=== PATIENT | male | born 1935 | race Caucasian/White ===

== ENCOUNTER → 2020-06-13 18:00 | Outpatient (CLI) | payer MEDICARE, SELFPAY ==
[2020-06-13 18:59] LABS: Basophils % 0.9 % (0.1-2.0); Eosinophils % 1.4 % (0.1-12.0); Hematocrit 40.3 % (42.0-52.0); Hemoglobin 13.6 g/dL (14.1-18.0); Lymphocytes # 0.8 K/mm3 (0.7-4.5); Lymphocytes % 26.7 % (10-50); Mean Corpuscular HGB Conc 33.8 g/dL (31.8-35.4); Mean Corpuscular Hemoglobin 34.7 pg (27.0-31.2); Mean Corpuscular Volume 102.8 fl (80-94); Mean Platelet Volume 8.8 fl (7.4-10.4); Monocytes # 0.3 K/mm3 (0.1-1.0); Monocytes % 8.7 % (1.7-9.3); Neutrophils # 1.8 K/mm3 (1.8-7.8); Neutrophils % 62.3 % (37.0-80.0); Platelet Count 172 K/mm3 (142-424); Red Blood Count 3.92 M/mm3 (4.60-6.20); Red Cell Distribution Width 15.1 % (11.5-17.5); White Blood Count 2.9 K/mm3 (4.8-10.8)
[2020-06-13 19:04] LABS: Chloride 104 mmol/L (98-107); Potassium 3.7 mmoL/L (3.5-5.1); Sodium 141 mmol/L (136-145)
[2020-06-13 19:06] LABS: Alanine Aminotransferase 14 U/L (12-78); Alkaline Phosphatase 54 U/L (38-126); Aspartate Amino Transferase 26 U/L (17-59); Bilirubin,Total 1.2 mg/dl (0.2-1.3); Blood Urea Nitrogen 18 mg/dl (9-20); Estimated Glomerular Filt Rate 93 ml/min (>60); GFR (African American) 112 ML/MIN (>60)
[2020-06-13 19:07] LABS: Albumin Level 3.8 g/dl (3.5-5.0); Albumin/Globulin Ratio 1.7 (1.1-1.8); Anion Gap 8.7 mEq/L (5-15); Carbon Dioxide 32 mmol/L (22.0-30.0); Globulin 2.3 g/dL (1.3-3.2); Glucose 123 mg/dl (74-100); Total Protein,Serum 6.1 g/dl (6.3-8.2)
[2020-06-13 19:38] LABS: Thyroid Stimulating Hormone 1.32 uIU/mL (0.465-4.68)
== END ==
PROVIDERS: Visit Provider Family Medicine
DX: J45.909 Unspecified asthma, uncomplicated (principal); R41.3 Other amnesia; Z00.00 Encounter for general adult medical examination without abnormal findings
CPT/HCPCS: 80053; 84443; 85025

== ENCOUNTER → 2020-06-22 10:09 | Outpatient (CLI) | payer MEDICARE, SELFPAY ==
--- NOTE | 2020-06-22 10:16 | CT_ITS ---
PROCEDURE: CT HEAD/BRAIN WO/W CON CLINICAL INDICATION: memory loss, hx of brain trauma COMPARISON: No exams were available for comparison TECHNIQUE: IV Contrast: 100ML OPITRAY 320 Axial images obtained. All CT scans at the facility use one or more dose reduction, viz: automated exposure control, ma/kV adjustment per patient size (including targeted exams where dose is matched to indication, i.e. head), or iterative reconstruction technique. FINDINGS: No midline shift, mass effect, intracranial hemorrhage, hydrocephalus, or extra-axial fluid collection is evident. There is generalized atrophy with hypoattenuation of the periventricular white matter consistent with microangiopathic changes. The calvarium has an unremarkable appearance. No enhancing lesions. IMPRESSION: No acute Finding(s). Dictated by: Iam Cooper MD 06/22/2020 17:09 Iam Cooper MD in [place] 06/22/2020 17:09
== END ==
PROVIDERS: PCP Family Medicine; Visit Provider Family Medicine
DX: R41.3 Other amnesia (principal)
CPT/HCPCS: 70470; Q9967

== ENCOUNTER → 2020-08-17 13:50 | Outpatient (CLI) | payer MEDICARE, SELFPAY ==
[2020-08-17 14:30] LABS: Basophils % 0.7 % (0.1-2.0); Hemoglobin 14.6 g/dL (14.1-18.0); Lymphocytes # 1.1 K/mm3 (0.7-4.5); Lymphocytes % 27.6 % (10-50); Mean Corpuscular HGB Conc 32.5 g/dL (31.8-35.4); Mean Corpuscular Hemoglobin 34.4 pg (27.0-31.2); Mean Corpuscular Volume 105.8 fl (80-94); Mean Platelet Volume 7.4 fl (7.4-10.4); Monocytes # 0.4 K/mm3 (0.1-1.0); Monocytes % 9.6 % (1.7-9.3); Neutrophils # 2.4 K/mm3 (1.8-7.8); Neutrophils % 61.2 % (37.0-80.0); Platelet Count 198 K/mm3 (142-424); Red Blood Count 4.26 M/mm3 (4.60-6.20); Red Cell Distribution Width 15.3 % (11.5-17.5); White Blood Count 3.9 K/mm3 (4.8-10.8)
[2020-08-17 15:03] LABS: Chloride 103 mmol/L (98-107); Sodium 138 mmol/L (136-145)
[2020-08-17 15:04] LABS: Potassium 4.6 mmoL/L (3.5-5.1)
[2020-08-17 15:06] LABS: Blood Urea Nitrogen 16 mg/dl (9-20); Estimated Glomerular Filt Rate 93 ml/min (>60); GFR (African American) 112 ML/MIN (>60)
[2020-08-17 15:07] LABS: Anion Gap 9.6 mEq/L (5-15); Calcium 9.3 mg/dl (8.4-10.2); Carbon Dioxide 30 mmol/L (22.0-30.0); Glucose 86 mg/dl (74-100)
[2020-08-17 15:08] LABS: Coronavirus 19 IgG Antibody Negative (Negative); Coronavirus 19 IgM Antibody Negative (Negative)
== END ==
PROVIDERS: Visit Provider Surgery
DX: R22.31 Localized swelling, mass and lump, right upper limb (principal); Z01.818 Encounter for other preprocedural examination; Z03.818 Encounter for observation for suspected exposure to other biological agents ruled out
CPT/HCPCS: 36415; 80048; 85025; 86328

== ENCOUNTER 2020-08-19 10:33 | Day surgery (SDC) | payer MEDICARE, SELFPAY ==
[2020-08-18 12:03] VITALS: BMI 23.0
[2020-08-19] VITALS (13 sets, daily range): BP systolic 122–143; BP diastolic 74–93; PULSE 71–91; RESP 12–18; TEMP 36.1–43; O2SAT 93–100
--- NOTE | 2020-08-19 10:53 | ECG_ITS ---
APPROVED REPORT Exam: Resting ECG HR:67 bpm ECG Measurements Heart Rate 67 AXES UT 224 P 84 QRSd 80 QRS 86 QT 394 T 77 QTc 416 Conclusion Sinus rhythm with 1st degree AV block Otherwise normal ECG Electronically signed by : Hardik Oliveros, 08/20/2020 10:33:49
--- NOTE | 2020-08-19 13:26 | HMH.ANESCL ---
[facility] Anesthesia Checklist - Patient Identification Patient Identification: Arm Band, Verbal (Name & ) - Structural Data Admitted From: Home Planned Operative Procedure/s: ex. fa mass Consent for Planned Operative Procedure(s) Verified: Yes Verified Documents: History and Physical - NPO Status Verified Time NPO: 00:00 - Additional verifications Patient : No Anesthesia Reactions: No Hx Blood Transfusions: No Blood Transfusion Reaction: No Cephalosporin Allergy: No Previous Colonoscopy: No - Cardiovascular Assessment Heart Sounds: S1 & S2 Pulse Strength: Baseline Pulse Rhythm: Regular Peripheral Edema: No - Airway Assessment C-Spine Mobility Assessed: Yes TMJ Mobility Assessed: Yes Dentition: Good Dentition - Neurological Assessment Level of Consciousness: Awake, Alert, Appropriate Hx Seizures: No Numbness or tingling in extremities: No - Anesthesia Plan Anesthesia Risk discussed: Yes Anesthesia Plan: Verified ASA Class: II Anesthesia Type: General [facility] History I have reviewed the patient's past medical history: Yes Medical History: Reports:: Asthma, Cancer (colon) Denies:: Diabetes Mellitus Type 1, Diabetes Mellitus Type 2, MRSA, Seizures *Have you ever received a pneumonia vaccine?: Yes *Have you received a flu vaccine this season?: Yes Other Medical History: Reports: Arthritis. Denies: Blood Transfusion Reaction Anesthesia experience/problems:: none Laterality Cases: Left: Arthroscopy Hip, Bilateral: Arthroscopy Knee Other Surgeries: Yes: Appendectomy, Colonoscopy Amputation: No - *Social History Last grade of school completed: Some college Smoking Status: Former smoker Alcohol Intake: never Alcohol Intake Frequency:: 3 or more drinks per day Substance Use Type: denies use *Occupational Status:: disabled Housing: house *Travel in the last 8 weeks: None Family Hx:: Other
--- NOTE | 2020-08-19 13:38 | P.OP_ITS ---
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 General anesthesia with laryngeal mask airway was achieved. The right upper extremity was prepped and draped in a sterile fashion. After infiltration local anesthetic an elliptical incision was made around the lesion with a 1 mm margin. The lesion was sharply excised and passed off for pathologic evaluation after being marked for margin with Vicryl suture. Reviewed the superior margin was marked with a short Vicryl suture and the thenar margin was marked with a long suture. Electrocautery was utilized to achieve hemostasis. Skin was then reapproximated with interrupted 4-0 nylon. Dressings were applied and the patient was transferred to recovery in stable condition after removal of his laryngeal mask airway. Condition: stable Disposition: PACU Specimens:: Right upper extremity skin lesion Complications:: No immediate
--- NOTE | 2020-08-19 13:44 | P.PN_ITS ---
[facility] Anesthesia Record Part I Intake, IV Amount: 400 Estimated blood loss (mL): 5 Urine output (mL): 0 Blood Products used (#): none Blood Pressure: 126/74 SaO2: 93 Pulse Rate: 84 Respiratory Rate: 18 Temperature: 97.6 F Patient is:: Drowsy, Stable Stable to PACU at:: 13:43
--- NOTE | 2020-08-19 14:52 | SUR.PHASEII ---
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 Dr casey aware.
--- NOTE | 2020-08-19 15:39 | P.PN_ITS ---
[facility] Anesthesia Record Part II Discharge Time: 14:13 Destination: Surgical Day Care (OP Surgery) PACU nurse assessment reviewed?: Yes Patient Condition:: Good Anesthesia Complications:: None Swallowing reflex intact?: Yes Cyanosis?: No Blood Pressure: 138/93 Pulse Rate: 80 Temperature: 97.0 F Mental Status: Alert & Oriented Pain level:: 0 Nausea and/or vomitting:: None Intake, IV Amount: 35
--- NOTE | 2020-08-19 16:42 | SUR.PHASEI ---
1343-pt to pacu via stretcher. Report received from Shazia BAIG and Serjio WU. Pt is sleeping comfortably. Arouses when name is called. 1353-Pt is awake but confused. C/o urge to void and sits up in bed. Urinal given to patient. Able to void 100 ml clear yellow urine without difficulty. Underwear soiled. Dry linens placed on bed. Underwear placed in biohazard bag and given to pt. 1403-Pt up on the side of the bed with assistance. C/o urge to void. Able to void w/o difficulty. Pt more awake and not confused at this time. 200 ml clear, yellow urine noted.
== END 2020-08-19 15:38 | disposition home or self-care (01) ==
LOC: OR 10:34
PROVIDERS: PCP Family Medicine; Visit Provider Surgery
PROC: (CPT 11603; principal; 2020-08-19 12:15)
DX: C44.622 Squamous cell carcinoma of skin of right upper limb, including shoulder (principal); J45.909 Unspecified asthma, uncomplicated; Z85.038 Personal history of other malignant neoplasm of large intestine; M19.90 Unspecified osteoarthritis, unspecified site
CPT/HCPCS: 11603; 88305; 93005; 96374

== ENCOUNTER → 2021-05-10 08:49 | Outpatient (CLI) | payer MEDICARE, SELFPAY ==
--- NOTE | 2021-05-10 08:58 | US_ITS ---
PROCEDURE: US GALLBLADDER CLINICAL INDICATION: gallstones COMPARISON: No exams were available for comparison FINDINGS: Pancreas: Pancreas is not well delineated due to overlying bowel gas. CT or MRI without and with contrast with pancreatic protocol may provide further evaluation if clinically desired. Liver: Unremarkable. There is appropriate direction of blood flow within a non dilated portal vein. Right kidney: Small right renal cyst at 1.6 cm. No hydronephrosis. Gallbladder: Wall echo shadow sign consistent with gallbladder filled with stones. Common bile duct is normal in caliber at 4 mm. Gallbladder wall is slightly thickened at 5 mm. No pericholecystic fluid evident. IMPRESSION: Wall echo shadow sign consistent with stone filled gallbladder with mild gallbladder wall thickening. No biliary dilatation or pericholecystic fluid. Dictated by: Iam Cooper MD 05/10/2021 09:51 Iam Cooper MD in [facility] 05/10/2021 09:51
== END ==
LOC: RAD 08:54
PROVIDERS: PCP Family Medicine; Visit Provider Family Medicine
DX: R10.11 Right upper quadrant pain (principal)
CPT/HCPCS: 76705

== ENCOUNTER → 2021-05-16 14:19 | Outpatient (POV) | payer MEDICARE, SELFPAY | PROVIDERS: Visit Provider Dermatology | DX: Z00.00 Encounter for general adult medical examination without abnormal findings (principal) ==

== ENCOUNTER → 2021-05-31 09:34 | Outpatient (CLI) | payer MEDICARE, SELFPAY ==
--- NOTE | 2021-05-31 10:04 | ECG_ITS ---
APPROVED REPORT Exam: Resting ECG HR:80 bpm ECG Measurements Heart Rate 80 AXES MN 192 P 127 QRSd 80 QRS 93 QT 362 T 76 QTc 417 Conclusion l Unusual P axis, possible ectopic atrial rhythm Rightward axis Abnormal ECG Electronically signed by : Hardik Oliveros MD 05/31/2021 17:47:12
[2021-05-31 10:12] LABS: Basophils % 0.4 % (0.1-2.0); Eosinophils % 0.1 % (0.1-12.0); Hematocrit 42.9 % (42.0-52.0); Hemoglobin 14.2 g/dL (14.1-18.0); Lymphocytes # 0.6 K/mm3 (0.7-4.5); Lymphocytes % 15.3 % (10-50); Mean Corpuscular Hemoglobin 33.8 pg (27.0-31.2); Mean Corpuscular Volume 102.4 fl (80-94); Monocytes # 0.1 K/mm3 (0.1-1.0); Monocytes % 2.6 % (1.7-9.3); Neutrophils # 3.2 K/mm3 (1.8-7.8); Neutrophils % 81.5 % (37.0-80.0); Platelet Count 228 K/mm3 (142-424); Red Blood Count 4.19 M/mm3 (4.60-6.20); Red Cell Distribution Width 14.8 % (11.5-17.5)
[2021-05-31 10:57] LABS: Chloride 105 mmol/L (98-107); Potassium 4.3 mmoL/L (3.5-5.1); Sodium 139 mmol/L (136-145)
[2021-05-31 11:00] LABS: Alanine Aminotransferase 15 U/L (12-78); Albumin Level 3.7 g/dl (3.5-5.0); Albumin/Globulin Ratio 1.5 (1.1-1.8); Alkaline Phosphatase 75 U/L (38-126); Anion Gap 10.3 mEq/L (5-15); Aspartate Amino Transferase 23 U/L (17-59); Bilirubin,Total 1.1 mg/dl (0.2-1.3); Blood Urea Nitrogen 16 mg/dl (9-20); Carbon Dioxide 28 mmol/L (22.0-30.0); Estimated Glomerular Filt Rate 129 ml/min (>60); GFR (African American) 156 ML/MIN (>60); Globulin 2.4 g/dL (1.3-3.2); Total Protein,Serum 6.1 g/dl (6.3-8.2)
[2021-05-31 11:01] LABS: Calcium 8.8 mg/dl (8.4-10.2); Glucose 149 mg/dl (74-100)
== END ==
PROVIDERS: Visit Provider Surgery
DX: K80.20 Calculus of gallbladder without cholecystitis without obstruction (principal); Z85.038 Personal history of other malignant neoplasm of large intestine; Z01.812 Encounter for preprocedural laboratory examination; Z11.52 Encounter for screening for COVID-19
CPT/HCPCS: 36415; 80053; 85025; 93005; C9803; U0003; U0005

== ENCOUNTER 2021-06-02 12:58 | Observation (INO) | payer MEDICARE, SELFPAY ==
[2021-05-31 12:35] VITALS: BMI 22.4
[2021-06-02] VITALS (21 sets, daily range): BP systolic 122–158; BP diastolic 50–94; PULSE 62–100; RESP 15–20; TEMP 36.5–36.9; O2SAT 90–100
--- NOTE | 2021-06-02 08:39 | P.PN_ITS ---
[facility] Anesthesia Checklist - Patient Identification Patient Identification: Arm Band, Verbal (Name & ) - Structural Data Admitted From: Home Planned Operative Procedure/s: Laparascopic Cholecystectomy Consent for Planned Operative Procedure(s) Verified: Yes Verified Documents: Surgical Consent - NPO Status Verified Time NPO: 00:00 - Additional verifications Anesthesia Reactions: No Hx Blood Transfusions: No Blood Transfusion Reaction: No - Cardiovascular Assessment Heart Sounds: S1 & S2 Pulse Rhythm: Regular - Airway Assessment C-Spine Mobility Assessed: Yes TMJ Mobility Assessed: Yes - Neurological Assessment Level of Consciousness: Awake, Alert, Appropriate - Anesthesia Plan Anesthesia Risk discussed: Yes ASA Class: II Anesthesia Type: General [facility] History Medical History: Reports:: Asthma, Cancer (colon) Denies:: Diabetes Mellitus Type 1, Diabetes Mellitus Type 2, Internal Pacemaker, MRSA, Seizures *Have you ever received a pneumonia vaccine?: No *Have you received a flu vaccine this season?: No Other Medical History: Reports: Arthritis. Denies: Blood Transfusion Reaction Anesthesia experience/problems:: no issues Laterality Cases: Left: Arthroscopy Hip, Bilateral: Arthroscopy Knee Other Surgeries: Yes: Appendectomy, Colonoscopy, Other. No: Pacemaker Amputation: No - *Social History Last grade of school completed: High school graduate Smoking Status: Former smoker Alcohol Intake: former Alcohol Intake Frequency:: 3 or more drinks per day Substance Use Type: denies use *Occupational Status:: retired Housing: house Household Members: spouse *Travel in the last 8 weeks: None Family Hx:: No significant family history
--- NOTE | 2021-06-02 11:35 | SUR.OPER ---
1102-family updated at this time 1135-family updated at this time
--- NOTE | 2021-06-02 11:40 | SUR.OPER ---
1136-contacted greenhouse or nursery transplanter and care management at this time to notify that patient would be admitted as inpatient for further monitoring as ordered per Dr. Covington
--- NOTE | 2021-06-02 12:03 | HMH.GSHP ---
HPI HPI: This is an 85-year-old gentleman with documented changes consistent with calculus cholecystitis. He underwent laparoscopic cholecystectomy where fairly severe calculus cholecystitis was confirmed. In addition he had profound/stents adhesions between the small bowel/colon and anterior abdominal wall. Secondary to the above findings his laparoscopic cholecystectomy was completed with the addition of a mini laparotomy for better evaluation is a focal area of questionable small bowel injury. No obvious injury was noted. Postoperatively, he was admitted for pain management, antibiotics, and ongoing observation. [facility] History Medical History: Reports:: Asthma, Cancer (colon) Denies:: Diabetes Mellitus Type 1, Diabetes Mellitus Type 2, Internal Pacemaker, MRSA, Seizures *Have you ever received a pneumonia vaccine?: No *Have you received a flu vaccine this season?: No Other Medical History: Reports: Arthritis. Denies: Blood Transfusion Reaction Anesthesia experience/problems:: no issues Laterality Cases: Left: Arthroscopy Hip, Bilateral: Arthroscopy Knee Other Surgeries: Yes: Appendectomy, Colonoscopy, Other. No: Pacemaker Amputation: No - *Social History Last grade of school completed: High school graduate Smoking Status: Former smoker Alcohol Intake: former Alcohol Intake Frequency:: 3 or more drinks per day Substance Use Type: denies use *Occupational Status:: retired Housing: house Household Members: spouse *Travel in the last 8 weeks: None Family Hx:: No significant family history Review of Systems - Constitutional Denies chills - Eyes Denies change in vision - ENT Denies difficulty swallowing - *Cardiovascular Denies chest pain - *Respiratory Denies cough - *Gastrointestinal Reports abdominal pain - *Genitourinary Denies blood in urine - *Musculoskeletal Denies deformity - Integumentary/Breasts Denies wounds - *Neurologic Denies abnormal speech - Psychiatric Denies anxiety - Endocrine Denies flushing - Hematologic/Lymphatic Denies easy bleeding - Allergic/Immunologic Reports GI upset with certain foods Meds Home Medications Medication Instructions Recorded Confirmed Type Hydrocod/Acet 5/325 mg [Benjamin 1 - 2 tab PO Q6HP PRN #17 tab 06/02/21 Rx 5/325mg tablet] Allergies Allergy/AdvReac Type Severity Reaction Status Date / Time No Known Allergies Allergy Verified 05/10/21 13:10 Exam Vital signs and Labs for Last 24 Hours: Temp Pulse Resp BP Pulse Ox 98.4 F 80 20 129/70 98 06/02/21 07:42 06/02/21 07:42 06/02/21 07:42 06/02/21 07:42 06/02/21 07:42 I & O for Last 24 hours: Intake & Output 05/31/21 06/01/21 06/02/21 06/03/21 11:59 11:59 11:59 11:59 Weight 165 lb - Constitutional no acute distress - *Routine HEENT Exam Head: Present: normocephalic Eye: Present: EOMI ENT: Present: mucous membranes moist - *Routine Neck Exam Present: full ROM - Routine Chest/Breast/Axilla Exam Chest wall: Absent: tenderness - *Routine Respiratory Exam Absent: respiratory distress - *Routine Cardiovascular Exam Present: RRR - *Routine Abdominal Exam Present: soft - *Routine Rectal Exam Rectal:: deferred - *Routine Genitalia Exam Genitalia:: deferred - *Routine Extremities Exam Absent: cyanosis, clubbing, edema - Routine Back/Spine/Pelvis Exam Back/Spine: Present: full ROM - *Routine Skin Exam Absent: erythema - *Routine Neurological Exam Present: alert - Routine Psychiatric Exam Present: normal affect Assessment and Plan (1) Acute cholecystitis without calculus Status: Acute Category: Medical Code(s): K81.0 - Acute cholecystitis (2) Abdominal adhesions Status: Acute Category: Medical Code(s): K66.0 - Peritoneal adhesions (postprocedural) (postinfection) - Assessment and plan all Dx Assessment and Plan for all problems:: Postoperative admission secondary to intraoperative fi
--- NOTE | 2021-06-02 12:07 | HMH.OPNOTE ---
Date of procedure: 06/02/21 Pre-op Diagnosis:: Chronic calculus cholecystitis Post-op Diagnosis:: Acute calculus cholecystitis Profound intra-abdominal adhesions Procedure performed:: Laparoscopic cholecystectomy Mini laparotomy for evaluation of small bowel Surgeon:: Marcel Covington MD Laborer [employer] Processing(s):: Stef Anesthesia: VILMA Estimated blood loss (mL): 25 Operative findings:: Severe acute calculus cholecystitis Profound intra-abdominal adhesions secondary to prior surgery Adhesions between small bowel and anterior abdominal wall without protection from omentum Operative note:: After informed consent was obtained the patient was taken to the operating room and placed in the supine position. General anesthesia was induced and his abdomen was prepped and draped in a sterile fashion. After infiltration local anesthetic a small stab incision was made in the left upper quadrant secondary to his prior midline laparotomy. A Veress needle was placed in position. The abdomen was insufflated. A 5 mm optical trocar was placed in position. Under direct visualization an additional 5 mm trochars placed in the left flank. Dense adhesions between the small bowel and anterior abdominal wall were noted throughout. These adhesions were very difficult to take down as there was essentially no protective layer of omentum . The small bowel and anterior abdominal wall were essentially fused at many points. No obvious injury to the small bowel was noted as dense adhesions were carefully taken down with a combination of sharp dissection and blunt dissection. This complex adhesiolysis continued with dissection along the entire upper abdomen. An additional 12 mm trocar was placed in the subxiphoid position as dissection allowed. 5 mm trocars (x2) were placed in the right upper quadrant in a similar manner. Just to the right of the umbilicus an additional 5 mm trocar was placed. There was a loop of small bowel adhered in this general region. No obvious injury was noted; however, secondary to the extremely dense nature of the adhesions in close proximity the decision was made to proceed with further evaluation upon completion of the cholecystectomy. Attention was then turned to the right upper quadrant. The gallbladder was carefully elevated after multiple dense adhesions in and around this region were carefully taken down. The gallbladder itself was acutely inflamed with an exceptionally large stone filling the entirety of the lumen from the infundibulum margin to the dome. Careful dissection around the cystic duct was completed. 3 clips were placed proximally and the duct was transected with harmonic felicia. Harmonic felicia were then utilized to dissect the gallbladder free from the liver margin. The gallbladder was placed in a retrieval bag and removed through the right mid abdominal incision that was expanded in a cephalad and caudal manner in order to both allow removal of the gallbladder but to also facilitate mini laparotomy for small bowel evaluation. Extremely dense adhesions of the small bowel are noted surrounding this site along the mid/right abdomen. No obvious injury to the small bowel was noted as careful dissection with Metzenbaum scissors was completed. Further dissection was deemed unwarranted and unsafe. The fascia was reapproximated with #2 Novafil. All wounds were irrigated and skin was closed with felice. Patient was transferred to recovery in stable condition after extubation. Condition: stable Disposition: PACU Specimens:: Gallbladder and contents Complications:: No immediate
--- NOTE | 2021-06-02 12:11 | HMH.ANESI ---
[facility] Anesthesia Record Part I Intake, IV Amount: 850 Estimated blood loss (mL): 10 Urine output (mL): 0 Blood Products used (#): none Blood Pressure: 128/50 SaO2: 100 Pulse Rate: 77 Respiratory Rate: 20 Temperature: 97.9 F Patient is:: Awake, Stable Stable to PACU at:: 12:08
--- NOTE | 2021-06-02 13:54 | P.PN_ITS ---
[facility] Anesthesia Record Part II Discharge Time: 12:38 Destination: Surgical Day Care (OP Surgery) PACU nurse assessment reviewed?: Yes Patient Condition:: Good Anesthesia Complications:: None Swallowing reflex intact?: Yes Cyanosis?: No Blood Pressure: 131/76 Pulse Rate: 71 Temperature: 97.9 F Mental Status: Alert & Oriented Pain level:: 1 Nausea and/or vomitting:: None Intake, IV Amount: 50
--- NOTE | 2021-06-02 13:54 | INFXCTL.NOTE ---
I was unable to get weight on mr. chaney do to him not being able to stand and the bed scale was not functioning
--- NOTE | 2021-06-02 14:05 | P.CONPHA_ITS ---
[facility] Pharmacy VTE Monitoring - Patient Demographics Admission date: 06/02/21 Report Date: 06/02/21 Time: 14:05 Allergies/Adverse Reactions: Patient Allergies No Known Allergies Allergy (Verified 05/10/21 13:10) Height: 1.83 m Weight: 74.843 kg Patient Problems: Current Active Problems Acute cholecystitis without calculus (Acute) Abdominal adhesions (Acute) - VTE Risk Clinical Trial Participant: No - Prophylaxis VTE Prophylaxis Ordered?: Yes Types of VTE Prophylaxis: IPCS Knee High, Pharmacological Pharmacologic Type: Enoxaparin (post op)
--- NOTE | 2021-06-02 17:33 | PC.NURSE ---
pt has been sleeping since arriving to floor, will awaken to his name, no complaints of pain, remains on room air, dressings on abdomen C/D/I
[2021-06-03] VITALS: BP 154/76; PULSE 100; RESP 18; TEMP 36.5; O2SAT 94
[2021-06-03 04:00] VITALS: BP 126/76; PULSE 85; RESP 19; TEMP 37.2; O2SAT 96
[2021-06-03 05:00] VITALS: BMI 22.5
--- NOTE | 2021-06-03 05:58 | PC.NURSE ---
Patient has not slept at all this shift; has had dressing reinforced multiple times; c/o pain in stomach at incision site but unable to give me a pain scale score, has had 2 doses of morphine with relief per patient when reassessed. Patient must be reoriented often, has pulled out IV and attempted to pull on new IV that was placed, he gotten out of bed many times without assistance and is a high risk for falls r/t anticoagulant therapy and narcotics for pain. No s/s of acute distress noted this shift, call light in reach, bed at lowest level for safety; will continue to monitor.
[2021-06-03 06:48] LABS: Basophils % 0.4 % (0.1-2.0); Eosinophils % 0.1 % (0.1-12.0); Hematocrit 41.8 % (42.0-52.0); Hemoglobin 13.4 g/dL (14.1-18.0); Lymphocytes % 16.5 % (10-50); Mean Corpuscular HGB Conc 32.1 g/dL (31.8-35.4); Mean Corpuscular Hemoglobin 33.5 pg (27.0-31.2); Mean Corpuscular Volume 104.4 fl (80-94); Mean Platelet Volume 8.1 fl (7.4-10.4); Monocytes # 0.6 K/mm3 (0.1-1.0); Monocytes % 9.1 % (1.7-9.3); Neutrophils # 4.5 K/mm3 (1.8-7.8); Neutrophils % 73.8 % (37.0-80.0); Platelet Count 209 K/mm3 (142-424); Red Blood Count 4.01 M/mm3 (4.60-6.20); Red Cell Distribution Width 14.6 % (11.5-17.5); White Blood Count 6.2 K/mm3 (4.8-10.8)
[2021-06-03 07:06] LABS: Alanine Aminotransferase 19 U/L (12-78); Albumin Level 3.2 g/dl (3.5-5.0); Albumin/Globulin Ratio 1.3 (1.1-1.8); Alkaline Phosphatase 59 U/L (38-126); Anion Gap 6.6 mEq/L (5-15); Aspartate Amino Transferase 41 U/L (17-59); Bilirubin,Total 1.7 mg/dl (0.2-1.3); Blood Urea Nitrogen 12 mg/dl (9-20); Calcium 8.5 mg/dl (8.4-10.2); Carbon Dioxide 32 mmol/L (22.0-30.0); Chloride 104 mmol/L (98-107); Creatinine Clearance Estimated 60 mL/min (50-200); Estimated Glomerular Filt Rate 92 ml/min (>60); GFR (African American) 112 ML/MIN (>60); Globulin 2.4 g/dL (1.3-3.2); Glucose 88 mg/dl (74-100); Potassium 3.6 mmoL/L (3.5-5.1); Sodium 139 mmol/L (136-145); Total Protein,Serum 5.6 g/dl (6.3-8.2)
[2021-06-03 08:00] VITALS: BP 115/78; PULSE 81; RESP 16; TEMP 36.8; O2SAT 95
--- NOTE | 2021-06-03 09:30 | P.PN_ITS ---
Subjective Patient reports: no new complaints Progress Note: A&P (1) Acute cholecystitis without calculus Status: Acute (2) Abdominal adhesions Status: Acute Assessment and Plan for All Diagnoses:: Overall, doing very well status post laparoscopic cholecystectomy followed by mini laparotomy. Discharge home with close outpatient follow-up Exam Vital signs and Labs for Last 24 Hours: Temp Pulse Resp BP Pulse Ox 99.0 F 85 19 126/76 96 06/03/21 04:00 06/03/21 04:00 06/03/21 04:00 06/03/21 04:00 06/03/21 04:00 Laboratory Results - last 24 hr 06/03/21 06:23: WBC 6.2 D, RBC 4.01 L, Hgb 13.4 L, Hct 41.8 L, MCV 104.4 H, MCH 33.5 H, MCHC 32.1, RDW 14.6, Plt Count 209, MPV 8.1, Neut % (Auto) 73.8, Lymph % (Auto) 16.5, [place] % (Auto) 9.1, Eos % (Auto) 0.1, Baso % (Auto) 0.4, Neut # (Auto) 4.5, Lymph # (Auto) 1.0, [place] # (Auto) 0.6, Eos # (Auto) 0.0, Baso # (Auto) 0.0 06/03/21 06:23: Sodium 139, Potassium 3.6, Chloride 104, Carbon Dioxide 32 H, Anion Gap 6.6, BUN 12, Creatinine 0.80 D, Estimated Creat Clear 60, Estimated GFR 92, Est GFR ( Amer) 112 D, Glucose 88, Calcium 8.5, Total Bilirubin 1.7 H, AST 41 D, ALT 19 D, Alkaline Phosphatase 59, Total Protein 5.6 L, Albumin 3.2 L, Globulin 2.4, Albumin/Globulin Ratio 1.3 I & O for Last 24 hours: Intake & Output 05/31/21 06/01/21 06/02/21 06/03/21 11:59 11:59 11:59 11:59 Intake Total 1575 / 1575 Output Total 500 / 500 Balance 1075 / 1075 Weight 165 lb 166 lb 3.657 oz - Constitutional no acute distress - *Routine Respiratory Exam Absent: respiratory distress - *Routine Cardiovascular Exam Present: RRR - *Routine Abdominal Exam Present: soft Comments: Dressings in place. Appropriate tenderness. No spreading cellulitis. - *Routine Neurological Exam Baseline confusion
--- NOTE | 2021-06-03 09:35 | HMH.DCSUM ---
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 He underwent laparoscopic cholecystectomy with concomitant mini laparotomy secondary to severity of intra-abdominal adhesions and severity of cholecystitis. Please see operative report for detail. Secondary to intraoperative findings he was admitted for ongoing postoperative observation and IV antibiotics. Hospital Course Hospital Course: Postoperatively, he progressed very well. On the morning of postoperative day 1 he did have moderate confusion that was felt to be baseline per his primary care physician (Dr. Sykes). He remained afebrile with stable and normal vital signs and was deemed appropriate for discharge with close outpatient follow-up. Objective Vital signs: Temp Pulse Resp BP Pulse Ox 99.0 F 85 19 126/76 96 06/03/21 04:00 06/03/21 04:00 06/03/21 04:00 06/03/21 04:00 06/03/21 04:00 no acute distress - *Routine HEENT Exam Head: Present: normocephalic Eye: Present: EOMI ENT: Present: mucous membranes moist - *Routine Neck Exam Present: full ROM - Routine Chest/Breast/Axilla Exam Chest wall: Absent: tenderness - *Routine Respiratory Exam Absent: respiratory distress - *Routine Cardiovascular Exam Present: RRR - *Routine Abdominal Exam Present: soft. Absent: distended - *Routine Rectal Exam Patient deferred: visual exam - *Routine Exam Patient deferred: penile exam - *Routine Extremities Exam Present: full ROM - Routine Back/Spine/Pelvis Exam Back/Spine: Present: full ROM - *Routine Skin Exam Absent: erythema - *Routine Neurological Exam Present: alert. Absent: oriented X3 - Routine Psychiatric Exam Present: normal affect. Absent: normal thought process Comments: baseline Results Labs on day of discharge: Labs from last 24 hours 06/03/21 06/03/21 06:23 06:23 WBC 6.2 D RBC 4.01 L Hgb 13.4 L Hct 41.8 L MCV 104.4 H MCH 33.5 H MCHC 32.1 RDW 14.6 Plt Count 209 MPV 8.1 Neut % (Auto) 73.8 Lymph % (Auto) 16.5 [place] % (Auto) 9.1 Eos % (Auto) 0.1 Baso % (Auto) 0.4 Neut # (Auto) 4.5 Lymph # (Auto) 1.0 [place] # (Auto) 0.6 Eos # (Auto) 0.0 Baso # (Auto) 0.0 Sodium 139 Potassium 3.6 Chloride 104 Carbon Dioxide 32 H Anion Gap 6.6 BUN 12 Creatinine 0.80 D Estimated Creat Clear 60 Estimated GFR 92 Est GFR ( Amer) 112 D Glucose 88 Calcium 8.5 Total Bilirubin 1.7 H AST 41 D ALT 19 D Alkaline Phosphatase 59 Total Protein 5.6 L Albumin 3.2 L Globulin 2.4 Albumin/Globulin Ratio 1.3 DS: Diagnosis - Discharge Diagnosis (1) Acute cholecystitis without calculus Status: Acute (2) Abdominal adhesions Status: Acute Discharge Plan - Patient Discharge Instructions ACTIVITY: No heavy lifting DIET: advance to your usual diet - Follow up Plan Follow up with: Marcel Covington MD [Staff Physician] - (Follow-up in 1 week (nurse visit) for staple removal. Follow-up in 3 weeks.) Darrian Sykes MD [Primary Care Provider] - 1 week Disposition: Home, Self-Care Condition at discharge:: Stable Home Medications: Home Medications Medication Instructions Recorded Confirmed Type Hydrocod/Acet 5/325 mg [[place] 1 - 2 tab PO Q6HP PRN #17 tab 06/02/21 Rx 5/325mg tablet] Memantine HCl/Donepezil HCl 1 cap PO HS 06/02/21 06/02/21 History [Namzaric 21 mg-10 mg Capsule] Amoxicillin/Potassium Clav 1 tab PO Q12H #10 tab 06/03/21 Rx [Augmentin 875-125 Tablet] Prescriptions/Medication Reconciliation: New Hydrocod/Acet 5/325 mg [[place] 5/325mg tablet] 1 - 2 tab PO Q6HP PRN #17 tab PRN Reason: post-op pain Amoxicillin/Potassium Clav [Augmentin 875-125 Tablet] 1 tab PO Q12H #10 tab No Action Memantine HCl/Donepezil HCl [Namzari
[2021-06-03 12:00] VITALS: BP 123/73; PULSE 77; RESP 18; TEMP 36.9; O2SAT 98
--- NOTE | 2021-06-03 13:09 | PC.NURSE ---
D/C instructions given to son Demarco and he stated a family member, would be staying with pt at this time.
== END 2021-06-03 13:00 | disposition home or self-care (01) ==
LOC: 2ND 12:59
PROVIDERS: Admitting Provider Surgery; PCP Family Medicine; Visit Provider Surgery
PROC: 0FT44ZZ Resection of Gallbladder, Percutaneous Endoscopic Approach (ICD-10-PCS; CPT 47562; principal; 2021-06-02 09:45)
DX: K80.12 Calculus of gallbladder with acute and chronic cholecystitis without obstruction (principal); K66.0 Peritoneal adhesions (postprocedural) (postinfection); Z53.31 Laparoscopic surgical procedure converted to open procedure; Z79.899 Other long term (current) drug therapy
CPT/HCPCS: 47562; 36415; 80053; 85025; 88304; 96374; G0378; J2405; J2543; J2710

== ENCOUNTER 2021-10-18 09:52 | Emergency (ER) | payer MEDICARE, SELFPAY ==
[2021-10-18 09:53] VITALS: BP 137/77; PULSE 76; RESP 18; TEMP 36.7; O2SAT 99; BMI 46.2
--- NOTE | 2021-10-18 10:05 | CT_ITS ---
FINAL REPORT CLINICAL HISTORY: fal, diff walking COMPARISON: 06/22/2020 FINDINGS: Axial images of the head were obtained without contrast. Coronal reformatted images were also obtained. This study was performed with techniques to keep radiation doses as low as reasonably achievable (ALARA). Individualized dose reduction techniques using automated exposure control or adjustment of mA and/or kV according to the patient's size were employed. There is generalized age-appropriate atrophy. Periventricular low-attenuation areas are seen consistent with mild chronic ischemic changes. There is no evidence of intracranial hemorrhage or mass. There is no evidence of acute infarct. There is no evidence of shift of the midline structures. No skull abnormality is seen on the bone window images. There is mild mucosal thickening of the sinuses. IMPRESSION: Atrophy and mild periventricular chronic ischemic changes. No acute intracranial abnormality identified. Reviewed, Interpreted and Dictated by Don Sanchez III, MD Transcribed by Alaina Baldwin Authenticated by Don Sanchez III, MD on 10/18/2021 11:35:10 AM [facility]
--- NOTE | 2021-10-18 10:06 | XR_ITS ---
FINAL REPORT CLINICAL HISTORY: fall/pain FINDINGS: 3 VIEW RIB SERIES AND CHEST X-RAY. Chest: The heart is normal in size. The mediastinum is normal. The lungs are clear. There is no pneumothorax. There is a moderate hiatal hernia. Ribs: Three views demonstrate mild irregularity of the left sixth distal rib, nondisplaced fracture is not excluded. No other definite fracture is identified. IMPRESSION: Questionable left sixth distal rib fracture. Reviewed, Interpreted and Dictated by Don Sanchez III, MD Transcribed by Alaina Baldwin Authenticated by Don Sanchez III, MD on 10/18/2021 11:35:09 AM [facility]
--- NOTE | 2021-10-18 10:07 | HMH.EDGENADL ---
ED Disposition Clinical Impression: Rib fracture Qualifiers: Encounter type: initial encounter Rib fracture type: single rib Fracture type: closed Laterality: left Qualified Code(s): S22.32XA - Fracture of one rib, left side, initial encounter for closed fracture Fall Qualifiers: Encounter type: initial encounter Qualified Code(s): W19.XXXA - Unspecified fall, initial encounter Disposition: Home, Self-Care Condition on Discharge: Good Instructions: How to Prevent Falls, DI for Rib Fracture Additional Instructions: follow up pcp, return for worse Referrals: Darrian Sykes MD [Primary Care Provider] - - Critical Care Critical Care Time: No Attestation: On , the high probability of a clinically significant, sudden or life threatening deterioration of the following system(s) required my full and direct attention, intervention and personal management. The time I documented below is in addition to time spent performing reported procedures but includes the following listed in this critical care notation. Medical Decision Making - Medical Records Medical records reviewed: Yes: I reviewed the patient's medical records. - Julien Inquiry Pt receiving controlled substance: No Vital Signs: 10/18/21 09:53 10/18/21 11:09 Temperature 98.0 F Temperature Source Oral Pulse Rate 79 Pulse Rate [Right Brachial] 76 Respiratory Rate 18 18 Blood Pressure 142/83 H Blood Pressure [Right Arm] 137/77 Blood Pressure Mean [Right Arm] 97 Blood Pressure Source Automatic Cuff Blood Pressure Source [Right Arm] Automatic Cuff Blood Pressure Position Supine Blood Pressure Position [Right Arm] Sitting 02 Sat by Pulse Oximetry 99 97 Oxygen Delivery Method Room Air Room Air - Lab Data Lab Results 10/18/21 10:23: WBC 5.7, RBC 3.95 L, Hgb 13.6 L, Hct 41.5 L, MCV 105.2 H, MCH 34.4 H, MCHC 32.7, RDW 15.2, Plt Count 163, MPV 8.1, Neut % (Auto) 63.8, Lymph % (Auto) 23.1, [place] % (Auto) 9.0, Eos % (Auto) 4.1, Baso % (Auto) 4.3 H, Neut # (Auto) 3.6, Lymph # (Auto) 1.3, [place] # (Auto) 0.5, Eos # (Auto) 0.2, Baso # (Auto) 0.2 10/18/21 10:23: Sodium 133 L, Potassium 4.4, Chloride 101, Carbon Dioxide 28, Anion Gap 8.4, BUN 16, Creatinine 0.80, Estimated Creat Clear 63, Estimated GFR 92, Est GFR ( Amer) 112, Glucose 106 H, Calcium 8.6, Total Bilirubin 2.3 H, AST 34, ALT 13, Alkaline Phosphatase 83, Total Protein 6.5, Albumin 3.9, Globulin 2.6, Albumin/Globulin Ratio 1.5 Result diagrams: 10/18/21 10:23 10/18/21 10:23 Orders (Tests/Meds): ED MEDICATIONS Discontinued Medications Generic Name Dose Route Start Last Admin Trade Name Freq PRN Reason Stop Dose Admin Sodium Chloride 1,000 mls @ 999 mls/hr 10/18/21 10:15 10/18/21 10:33 Sod Chlor 0.9% 1000ml Bag IV 10/18/21 11:15 999 mls/hr .Q1H1M REGI Administration ORDERS Category Date Time Status Urinalysis and Microscopic Stat Lab 10/18/21 10:05 Ordered General Adult HPI - General Stated complaint: altered mental status, AO fall 2/ Time Seen by Provider: 10/18/21 10:07 - History of Present Illness HPI narrative: trip and fall few days ago at home, today with weakness, left rib pain Onset (ago): day(s) Location: chest Radiation: non-radiation Severity: mild, moderate Quality: aching Consistency: constant Relieving factors: immobilization Exacerbating factors: movement Associated symptoms: denies other symptoms - Related Data Previous Rx's Medication Instructions Recorded memantine ER 21 mg-donepezil 10 mg 1 cap PO #90 each 07/21/21 capsule sprinkle,ext.release 24 hr Allergies Allergy/AdvReac Type Severity Reaction Status Date / Time No Known Allergies Allergy Verified 07/21/21 11:55 [facility] History - Hepatitis A Screen Attestation statement:: This patient has been screened for Hepatitis A risk factors. Medical History: Reports:: Asthma, Cancer Denies:: Diabetes Mellitus Type 1, Diabetes Mellitus Type 2, Interna
[2021-10-18 10:38] LABS: Basophils # 0.2 K/mm3 (0-0.2); Basophils % 4.3 % (0.1-2.0); Eosinophils # 0.2 K/mm3 (0.0-0.4); Eosinophils % 4.1 % (0.1-12.0); Hematocrit 41.5 % (42.0-52.0); Hemoglobin 13.6 g/dL (14.1-18.0); Lymphocytes # 1.3 K/mm3 (0.7-4.5); Lymphocytes % 23.1 % (10-50); Mean Corpuscular HGB Conc 32.7 g/dL (31.8-35.4); Mean Corpuscular Hemoglobin 34.4 pg (27.0-31.2); Mean Corpuscular Volume 105.2 fl (80-94); Mean Platelet Volume 8.1 fl (7.4-10.4); Monocytes # 0.5 K/mm3 (0.1-1.0); Neutrophils # 3.6 K/mm3 (1.8-7.8); Neutrophils % 63.8 % (37.0-80.0); Platelet Count 163 K/mm3 (142-424); Red Blood Count 3.95 M/mm3 (4.60-6.20); Red Cell Distribution Width 15.2 % (11.5-17.5); White Blood Count 5.7 K/mm3 (4.8-10.8)
[2021-10-18 10:46] LABS: Chloride 101 mmol/L (98-107); Sodium 133 mmol/L (136-145)
[2021-10-18 10:47] LABS: Potassium 4.4 mmoL/L (3.5-5.1)
[2021-10-18 10:49] LABS: Alanine Aminotransferase 13 U/L (12-78); Albumin Level 3.9 g/dl (3.5-5.0); Alkaline Phosphatase 83 U/L (38-126); Anion Gap 8.4 mEq/L (5-15); Aspartate Amino Transferase 34 U/L (17-59); Bilirubin,Total 2.3 mg/dl (0.2-1.3); Blood Urea Nitrogen 16 mg/dl (9-20); Carbon Dioxide 28 mmol/L (22.0-30.0); Creatinine Clearance Estimated 63 mL/min (50-200); Estimated Glomerular Filt Rate 92 ml/min (>60); GFR (African American) 112 ML/MIN (>60)
[2021-10-18 10:50] LABS: Albumin/Globulin Ratio 1.5 (1.1-1.8); Calcium 8.6 mg/dl (8.4-10.2); Globulin 2.6 g/dL (1.3-3.2); Glucose 106 mg/dl (74-100); Total Protein,Serum 6.5 g/dl (6.3-8.2)
[2021-10-18 11:09] VITALS: BP 142/83; PULSE 79; RESP 18; O2SAT 97
[2021-10-18 12:51] VITALS: BP 134/79; PULSE 79; RESP 18; TEMP 36.7; O2SAT 98
== END 2021-10-18 12:56 | disposition home or self-care (01) ==
PROVIDERS: Emergency Provider Emergency Medicine; PCP Family Medicine
DX: S22.32XA Fracture of one rib, left side, initial encounter for closed fracture (principal); W19.XXXA Unspecified fall, initial encounter; Z87.891 Personal history of nicotine dependence; J45.909 Unspecified asthma, uncomplicated
CPT/HCPCS: 70450; 71101; 80053; 85025; 96365; 99283

== ENCOUNTER → 2021-12-11 09:40 | Outpatient (CLI) | payer MEDICARE, SELFPAY ==
--- NOTE | 2021-12-11 09:41 | US_ITS ---
FINAL REPORT CLINICAL HISTORY: L thyroid lesion FINDINGS: THYROID ULTRASOUND Sonographic images of the thyroid was obtained. The right lobe of the thyroid measures 3.9 x 1.3 x 1.3 cm. The left lobe of the thyroid measures 4.6 x 2.2 x 1.4 cm. There is a nodule in the lower right lobe measuring 7 x 5 x 5 mm. It is solid and hypoechoic, TI-RADS 4. There is a nodule in the left lower lobe measuring 19 x 17 x 10 mm. It is heterogeneous, solid and mostly isoechoic, TI-RADS 3. IMPRESSION: Bilateral nodules as described. Recommend follow-up ultrasound. Reviewed, Interpreted and Dictated by Don Sanchez III, MD Transcribed by Yamila Chris Authenticated by Don Sanchez III, MD on 12/11/2021 02:20:29 PM [facility]
== END ==
PROVIDERS: PCP Family Medicine; Visit Provider Family Medicine
DX: E07.89 Other specified disorders of thyroid (principal)
CPT/HCPCS: 76536

== ENCOUNTER 2024-08-20 10:32 | Day surgery (SDC) | payer MEDICARE, SELFPAY ==
[2024-08-19 14:01] VITALS: BMI 26.4
[2024-08-20 10:53] VITALS: BP 105/64; PULSE 82; RESP 17; TEMP 36.2; O2SAT 100
[2024-08-20] MEDS: LIDOCAINE 1% 20ML MDV 20 ML (11:19)
--- NOTE | 2024-08-20 11:56 | EXP.OP.NOTE ---
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 His distal right upper extremity was prepped and draped in a sterile fashion. After infiltration with local anesthetic an elliptical incision was made around the lesion. The lesion was sharply excised in toto and passed off for pathologic evaluation after being marked for margin (short superior/long lateral). Electrocautery was utilized to achieve hemostasis. Skin was reapproximated with interrupted 4-0 nylon in a mattress fashion. Dressings were applied and the patient was discharged home in good condition. Condition: stable Disposition: PACU Specimens:: Right upper extremity skin lesion Complications:: No immediate
== END 2024-08-20 12:06 | disposition home or self-care (01) ==
PROVIDERS: PCP Family Medicine; Visit Provider Surgery
PROC: (CPT 11603; principal; 2024-08-20 11:45)
DX: C44.622 Squamous cell carcinoma of skin of right upper limb, including shoulder (principal)
CPT/HCPCS: 11603; 88305